=== PATIENT | female | born 1980 | race Caucasian/White ===

== ENCOUNTER 2024-10-04 12:10 | Outpatient (REF) | payer BC, SELFPAY ==
--- OUTSIDE RECORDS SUMMARY | 2024-10-04 14:32 | XMS_ITS | Clinical Summary ---
Author Organization [address] Address [address] [place] [address] Phone Care Team Providers Care Commercial Accountant Name Role Phone Israel Sánchez MD Primary Care Provider [phone] Allergies No known active allergies Medications Medication Sig Dispensed Refills Start Date End Date Status phentermine (ADIPEX-P) 37.5 mg tablet Take 1 Tablet by mouth every morning (before breakfast). 08/05/2023 Active omeprazole (PriLOSEC) [address] capsule Take 1 capsule (20 mg total) by mouth 1 (one) time each day. 03/11/2023 Active Active Problems Problem Noted Date Diagnosed Date COVID-19 09/03/2021 Overview (07/25/2024): 09/[address] [facility] Anxiety 08/14/2020 Hyperlipidemia 08/14/2020 Obesity (BMI 30-39.9) 09/11/2016 Encounters Date Type Department Care Team Description 08/16/2024 Telephone Internal Medicine - [address] [phone] Marquita Ireland MA from Last 3 Months Immunizations Name Administration Dates Next Due Influenza Quadravalent, MDCK , 0.5ml, with preservative (Flucelvax) 6mo and older 06/22/2017 Influenza, Unspecified 09/02/2016 PPD Test 06/22/2017 Tdap Tetanus diptheria acell ular pertussis (Boostrix; Adacel) 7yo and older 09/02/2016 Surgical History Surgery Date Site/Laterality Comments CHOLECYSTECTOMY 2010 PROCEDURE: LAPAROSCOPY, CHOLECYSTECTOMY SECTION 2010 PROCEDURE: HISTORICAL OTHER SURGICAL HISTORY 2008 PROCEDURE: MI DILATION & CURETTAGE DX&/THER NONOBSTETRIC OVARIAN CYST REMOVAL 2005 PROCEDURE: MI OVARIAN CYSTECTOMY UNI/BI BREAST REDUCTION 2011 PROCEDURE: MI BREAST REDUCTION Medical History Medical History Date Comments Obesity (BMI 30-39.9) 09/11/2016 DX:Obesity (BMI 30-39.9) PCOS (polycystic ovarian syndrome) DX:PCOS (polycystic ovarian syndrome) Family History Medical History Relation Name Comments Hypertension Father hyperlipidemia No Known Problems Mother Dementia Paternal Grandmother Prostate cancer Uncle father side Relation Name Status Comments Father Mother Alive Paternal Grandmother Uncle Social History Tobacco Use Types Packs/Day Years Used Date Smoking Tobacco: Former Cigarettes Q uit: 10/07/2018 Smokeless Tobacco: Never Alcohol Use Standard Drinks/Week Comments No 0 (1 standard drink = 0.6 oz pur e alcohol) Sex and Gender Information Value Date Recorded Sex Assigned at Female 09/14/2024 10:07 AM EST Gender Identity Female 09/14/2024 10:07 AM EST Sexual Orientation Straight 09/14/2024 10 :07 AM EST Job Start Date Occupation Industry Not on file Not on file Not on file Obstetrics History Last Filed Vital Signs Vital Sign Reading Time Taken Comments Blood Pressure 128/68 06/06/2024 9:14 AM EDT Pulse 74 06/06/2024 9:14 AM EDT Temperature - - Respiratory Rate - - Oxygen Saturation - - Inhaled Oxygen Concentration - - Weight 81.2 kg (179 lb) 05/30/2024 9:12 AM EDT Height 160 cm (5' 3 ) 05/30/2024 9:12 AM EDT Body Mass Index 31.71 05/30/2024 9:12 AM EDT Plan of Treatment Upcoming Encounters Date Type Department Care Team (Late st Contact Info) Description 11/14/2024 8:00 AM EDT Office Visit Internal Medicine - [address] [phone] Israel Sánchez MD [address] [place] [id number] 12/07/2024 9:15 AM EDT Office Visit Bariatric Surgery - [place] [address] [facility] [address] [place] [id number] Alfredo Jung MD [address] [place] [address] 12/28/2024 2:30 PM EDT Office Visit Obstetrics and Gynecology - [address] [phone] Moriah Posada, [facility] [address] [place] [address] Health Maintenance Due Date Last Done Comments Hepatitis B Vaccines (1 of 3 - 19+ 3-dose series) 01/26/1999 Depression Screening 08/15/2022 Hepatitis C Screening 08/15/2022 Social Influencers of Health Screening 08/15/2022 Breast Cancer Screening 12/14/2023 12/14/19 22, 11/12/2020 COVID-19 Vaccine (1 - 2023-2 5 season) 2024 Influenza Vaccine (#1) 2024 7, 09/02/2016 Cholesterol Screening (Lipid Panel) 08/14/2025 08/14/2020 Cervical Cancer Screening: HPV 10/16/2025 10/16/2020 DTaP,Tdap,and Td Vaccines (2 - Td or Tdap) 09/02/2026 09/02/2016 HIV Screening Completed 02/12/2022 HIB Vaccines Aged Out No longer eligi ble based on patient's age to complete this topic HPV Vaccines Aged Out No longer eligi ble based on patient's age to complete this topic Hepatitis A Vaccines Aged Out No long er eligible based on patient's age to complete this topic IPV Vaccines Aged Out No longer eligi ble based on patient's age to complete this topic MMR Vaccines Aged Out No longer eligi ble based on patient's age to complete this topic Meningococcal ACWY Vaccine Aged Out N o longer eligible based on patient's age to complete this topic Pneumococcal Vaccine: Pediatrics (0 to 5 Years) and At-Risk Patients (6 to 64 Years) Aged Out No longer eligible b ased on patient's age to complete this topic RSV Immunization Patients Under 20 months Aged Out No longer eligible b ased on patient's age to complete this topic Varicella Vaccines Aged Out No longer eligible based on patient's age to complete this topic Procedures Procedure Name Priority Date/Time Associated Diagnosis Comments HIV SCREENING Routine 02/12/2022 SCREENING MAMMOGRAPHY BI 2-VIEW BREAST INC CAD Routine 12/13/2021 11:04 AM EDT Encounter for screening mammogram for malignant neoplasm of breast HPV Routine 10/16/2020 LIPID PANEL Routine 08/14/2020 from Last 3 Months or Most Recently Relevant to Health Maintenance Results * Hm HIV Screening (02/12/2022) HIV Screening abstracted Historical Provider MD ANNY BAHENA E * SCREENING MAMMOGRAPHY BI 2-VIEW BREAST INC CAD (12/13/2021 11:04 AM EDT) Anatomical Region Laterality Modality Radiographic Snow ging 11/12/2020 4:13 PM EST Narrative 12/15/2021 5:57 PM EDT This is a summary report. The complete report is available in the patient's medical record. If you cannot access the medical record, please contact the sending organization for a detailed fax or copy. Exam: Screening mammogram Findings: Digital bilateral full-field screening mammography is performed with tomosynthesis and interpreted with the aid of computer-aided detection. ??Comparison is made with 11/12/2020. Breast parenchyma is composed of scattered fibroglandular densities. ??No new suspicious mass, architectural distortion, or suspicious calcifications. Impression: No mammographic evidence of malignancy. BI-RADS 1 - negative Procedure Note Mel Brizuela MD - 08/25/2022 This is a summary report. The complete report is available in thepatient's medical record. If you cannot access the medical record, pleasecontact the sending organization for a detailed fax or copy. Exam: Screening mammogram Findings: Digital bilateral full-field screening mammography is performedwith tomosynthesis and interpreted with the aid of computer-aideddetection. Comparison is made with 11/12/2020. Breast parenchyma is composed of scattered fibroglandular densities. Nonew suspicious mass, architectural distortion, or suspiciouscalcifications. Impression: No mammographic evidence of malignancy. BI-RADS 1 - negative Catracho Cedeño NP IMG XR PROCEDURES * Cervical Cancer Screening: HPV (10/16/2020) Cervical Cancer Screening: HPV abstracted, negative Historical Provider MD ANNY BAHENA E * (ABNORMAL) Lipid panel (08/14/2020) LDL/HDL Ratio 4 0 - 4 Triglycerides 60 0 - 150 mg/dL Cholesterol 177 0 - 200 mg/dL HDL 42 40 mg/dL LDL Cholesterol 123(A) 0 - 100 mg/dL Blood Venous blood specimen / Unknown Historical Provider LAB BLOOD ORDERAB LES from Last 3 Months or Most Recently Relevant to Health Maintenance Care Teams Commercial Accountant Relationship Specialty Start Date End Date Israel Sánchez MD [address] [place] [id number] PCP - General Internal Medicine 07/27/16
== END 2024-10-04 12:11 | disposition home or self-care (01) ==
LOC: HO.MAMMO 12:10
PROVIDERS: PCP Internal Medicine; Visit Provider Internal Medicine
DX: Z12.31 Encounter for screening mammogram for malignant neoplasm of breast (principal)
CPT/HCPCS: 77063; 77067

== ENCOUNTER → 2024-10-04 12:15 | Outpatient (BNV) | payer BC, SELFPAY | PROVIDERS: PCP Internal Medicine; Visit Provider Internal Medicine | DX: Z12.31 Encounter for screening mammogram for malignant neoplasm of breast (principal) | CPT/HCPCS: 77063; 77067 ==